=== PATIENT | female | born 1970 ===

== ENCOUNTER 2016-12-29 13:25 | Observation (INO) | payer MEDICAID ==
[2016-12-29 13:25] VITALS: BMI 38.6
--- NOTE | 2016-12-29 14:04 | ED PDOC ---
HPI: General Adult Time Seen by Provider: 12/29/16 13:50 Chief Complaint (Nursing): Chest Pain Chief Complaint (Provider): chest pain History Per: Patient History/Exam Limitations: no limitations Additional Complaint(s): 46yo female w/ Hx GERD comes to the ED complaining of intermittent chest pain, left arm and left chest "heaviness" which began while sitting today. She reports that she has had similar episodes in the past with exertion but this was the first one with rest. States yesterday she was not feeling well, describing feeling feeling winded/dyspnea on exertion. She denies calf swelling. She denies previous cardiac stress testing or cardiology workup. PMD Ginger Ahmadi Past Medical History Reviewed: Historical Data, Nursing Documentation, Vital Signs Vital Signs: Last Vital Signs Temp 98.0 F 12/29/16 13:34 Pulse 80 12/29/16 16:15 Resp 18 12/29/16 16:15 BP 147/99 H 12/29/16 16:15 Pulse Ox 99 12/29/16 18:08 - Medical History PMH: Anemia, Anxiety, Gastritis, GERD, Migraine Denies: Chronic Kidney Disease - Surgical History Surgical History: Appendectomy - Family History Family History: Denies: CAD, Hypertension - Living Arrangements Living Arrangements: With Family - Social History Current smoker - smoking cessation education provided: No Alcohol: None - Home Medications Home Medications: Ambulatory Orders Medication Instructions Recorded No Known Home Med 12/29/16 - Allergies Allergies/Adverse Reactions: Allergies Allergy/AdvReac Type Severity Reaction Status Date / Time No Known Allergies Allergy Verified 12/29/16 13:33 Review of Systems ROS Statement: Except As Marked, All Systems Reviewed And Found Negative Constitutional: Negative for: Fever, Chills Cardiovascular: Positive for: Chest Pain. Negative for: Palpitations, Orthopnea , Paroxysmal Noc. Dyspnea, Light Headedness Respiratory: Positive for: Shortness of Breath, SOB with Exertion. Negative for : Cough Gastrointestinal: Negative for: Nausea, Vomiting, Abdominal Pain, Diarrhea, Constipation Genitourinary Female: Negative for: Dysuria Neurological: Negative for: Weakness, Numbness, Headache Physical Exam - Reviewed Nursing Documentation Reviewed: Yes Vital Signs Reviewed: Yes - Physical Exam Appears: Positive for: Well, Non-toxic, No Acute Distress Head Exam: Positive for: ATRAUMATIC, NORMAL INSPECTION, NORMOCEPHALIC Skin: Positive for: Warm, Dry Eye Exam: Positive for: EOMI, PERRL Cardiovascular/Chest: Positive for: Regular Rate, Rhythm Respiratory: Positive for: Normal Breath Sounds. Negative for: Rales, Rhonchi, Wheezing Gastrointestinal/Abdominal: Positive for: Soft. Negative for: Tenderness, Mass , Distended Back: Positive for: Normal Inspection Extremity: Positive for: Normal ROM. Negative for: Pedal Edema - Laboratory Results Result Diagrams: 12/29/16 14:00 12/29/16 14:00 - ECG O2 Sat by Pulse Oximetry: 99 (RA) Pulse Ox Interpretation: Normal Medical Decision Making Medical Decision Makin EKG shows NSR at 86bpm with sinus arrhythmia, no ST changes impression: chest pain, rule out ACS Plan: CXR Aspirin EKG Labs reassess Patient reporting some nausea, given zofran. Also requesting valium for claustraphobia from CT. 6:14PM CT negative for PE. Trop x 1 negative. Patient does not have risk factors but has been unable to follow-up with cardiology as outpatient and has concerning story. Spoke to family resource coordinator and will transfer to tele observation for r/o acs. Disposition - Clinical Impression Clinical Impression: Chest pain on exertion - Disposition Disposition Time: 18:15 Condition: FAIR Additional Comments - Additional Comments Additional Comments: Scribe Attestation Documented by Balbir Petersen acting as a scribe for Merlene Clemente MD. Provider Attestation: All medical record entries made by the Scribe were at my direction and personally dictated by me. I have reviewed the chart and agree that the record accurately reflects my personal performance of the history, physical exam, medical decision making, and the department course for this patient. I have also personally directed, reviewed, and agree with the discharge instructions and disposition.
[2016-12-29 14:19] LABS: BASO % 0.8 % (0.0-2.0); EOS # 0.1 K/uL (0.0-0.7); EOS % 1.6 % (0.0-4.0); HEMATOCRIT 36.4 % (34.0-47.0); LYMPH # 0.8 K/uL (1.0-4.3); LYMPH % 13.4 % (20.0-40.0); MEAN CELL VOLUME 79.9 fl (81.0-99.0); MEAN CORPUSCULAR HEMOGLOBIN 26.6 pg (27.0-31.0); MEAN CORPUSCULAR HGB CONC 33.2 g/dL (33.0-37.0); MONO # 0.3 K/uL (0.0-0.8); MONO % 5.1 % (0.0-10.0); NEUT # 4.8 K/uL (1.8-7.0); NEUT % 79.1 % (50.0-75.0); RED CELL DISTRIBUTION WIDTH 14.4 % (11.5-14.5); WHITE BLOOD COUNT 6.1 K/uL (4.8-10.8)
[2016-12-29 14:28] LABS: ALB/GLOB RATIO 1.4 (1.0-2.1); ALKALINE PHOSPHATASE 93 U/L (38-126); ALT/SGPT 36 U/L (9-52); AST/SGOT 28 U/L (14-36); BILIRUBIN,TOTAL 0.3 mg/dl (0.2-1.3); BLOOD UREA NITROGEN 16 mg/dl (7-17); CALCIUM 9.7 mg/dL (8.4-10.2); CARBON DIOXIDE 24 mmol/L (22-30); CHLORIDE 104 mmol/L (98-107); GFR AFRICAN-AMERICAN > 60; GLUCOSE,RANDOM 110 mg/dL (65-105); POTASSIUM 4.6 MMOL/L (3.6-5.0); SODIUM 142 mmol/l (132-148); TOTAL PROTEIN 8.6 G/DL (6.3-8.2)
[2016-12-29] MEDS ORDERED: Iodixanol 320 MG/ML 100 ML BOTTLE IV ONE ×2 (14:45→16:46)
[2016-12-29] MEDS ORDERED: Sodium Chloride 0.9% 50 ML IV ONE (14:46)
--- NOTE | 2016-12-29 15:07 | RAD ---
HISTORY: chest pain, shortness of breath COMPARISON: 04/08/2016. TECHNIQUE: Chest PA and lateral FINDINGS: LUNGS: No active pulmonary disease. PLEURA: No significant pleural effusion identified. No pneumothorax apparent. CARDIOVASCULAR: No radiographic findings to suggest acute or significant cardiovascular disease. OSSEOUS STRUCTURES: No significant abnormalities. VISUALIZED UPPER ABDOMEN: Normal. OTHER FINDINGS: None. IMPRESSION: No active disease. No significant interval change compared to the prior examination(s).
[2016-12-29] MEDS ORDERED: diaZEpam 10 mg/2 ml Inj ONE (16:08)
[2016-12-29] MEDS ORDERED: diaZEpam 10 mg/2 ml Inj IVP ONE (16:08)
[2016-12-29] MEDS ORDERED: Sodium Chloride 0.9% 100 ML ONE (16:46)
--- NOTE | 2016-12-29 17:58 | CT ---
PROCEDURE: CT Chest with contrast (Pulmonary Angiogram) HISTORY: chest pain, shortness of breath COMPARISON: None available. TECHNIQUE: Axial computed tomography images were obtained of the chest in the pulmonary arterial phase of enhancement. Coronal and sagittal reformatted images were created and reviewed. This CT exam was performed using one or more of the following dose reduction techniques: Automated exposure control, adjustment of the mA and/or kV according to patient size, and/or use of iterative reconstruction technique. Intravenous contrast dose: 100 cc of Omnipaque 300 Radiation dose: Total exam DLP = 344 mGy-cm. FINDINGS: PULMONARY ARTERIES: Unremarkable. No pulmonary embolism. AORTA: No acute findings. No thoracic aortic aneurysm. LUNGS: Unremarkable. No nodule, mass or pulmonary consolidation. PLEURAL SPACES: Unremarkable. No effusion or pneuomothorax. HEART: Unremarkable. No cardiomegaly. No significant pericardial effusion. LYMPH NODES: No lymphadenopathy. BONES, CHEST WALL: Unremarkable. No fracture or destructive lesion OTHER FINDINGS: Unremarkable. IMPRESSION: Unremarkable CT pulmonary angiogram. No pulmonary embolus.
--- NOTE | 2016-12-29 18:37 | CP.PCM.HP ---
History of Present Illness - History of Present Illness History of Present Illness: CC: intermittent episodes of left sided chest tightness and left arm heaviness x 1 day 46 yo F w/ PMHx of Migraine, Anemia, HLD presented to the ED with intermittent episodes of left sided chest tightness, associated with increasing dyspnea on exertion and rest, as well as left arm heaviness. Onset of symptoms was earlier today while at rest with no alleviating factors. Symptoms aggravated by movement. Of note, patient has had episodes like this before and was admitted for similar symptoms with ''normal blood tests''. Also, patient has had panic attacks before. Currently denies headache, blurry vision, photophobia, neck pain /stiffness, cough, changes in urinary/bowel habits/ no new leg swelling. Able to ambulate without difficulty. No history of cardiology work up as outpatient. Has never had an ECHO or stress test. PMD: Dr. Ahmadi PMHx: Migraine, Anemia, HLD Allergies: NKDA Meds: Pepcid 20 mg BID PRN, Protonix 40 mg Daily Family Hx: Migraine, HTN, DM mother. Multiple relatives with Breast CA. Surgeries: Appendectomy Social Hx: Lives with family. No etoh, tobacco, or drugs. ED course: VS stable EKG shows NSR at 86bpm with sinus arrhythmia, no ST changes chest pain, rule out ACS Plan: CXR Aspirin EKG Labs CT negative for PE Trop x 1 negative. Present on Admission - Present on Admission Any Indicators Present on Admission: No Review of Systems - Review of Systems Review of Systems: see hpi Past Patient History - Infectious Disease Hx of Infectious Diseases: None - Tetanus Immunizations Tetanus Immunization: Unknown - Past Medical History & Family History Past Medical History?: Yes - Past Social History Alcohol: None - CARDIAC Hx Cardiac Disorders: No - PULMONARY Hx Respiratory Disorders: No - NEUROLOGICAL Hx Migraine: Yes - HEENT Other/Comment: blurry vision - RENAL Hx Chronic Kidney Disease: No - ENDOCRINE/METABOLIC Hx Endocrine Disorders: No - HEMATOLOGICAL/ONCOLOGICAL Hx Anemia: Yes - INTEGUMENTARY Hx Dermatological Problems: No - MUSCULOSKELETAL/RHEUMATOLOGICAL Hx Musculoskeletal Disorders: No Hx Falls: No - GASTROINTESTINAL Hx Gastritis: Yes - GENITOURINARY/GYNECOLOGICAL Hx Genitourinary Disorders: No - PSYCHIATRIC Hx Anxiety: Yes - SURGICAL HISTORY Hx Appendectomy: Yes - ANESTHESIA Hx Anesthesia: Yes Hx Anesthesia Reactions: No Meds Allergies/Adverse Reactions: Allergies Allergy/AdvReac Type Severity Reaction Status Date / Time No Known Allergies Allergy Verified 12/29/16 13:33 Physical Exam - Constitutional Appears: Non-toxic, No Acute Distress - Head Exam Head Exam: ATRAUMATIC - Eye Exam Eye Exam: EOMI Pupil Exam: PERRL - ENT Exam ENT Exam: Mucous Membranes Moist - Neck Exam Neck exam: Positive for: Full Rom. Negative for: Tenderness - Respiratory Exam Respiratory Exam: Clear to Auscultation Bilateral. absent: Rales, Rhonchi, Wheezes - Cardiovascular Exam Cardiovascular Exam: +S1, +S2 - GI/Abdominal Exam GI & Abdominal Exam: Normal Bowel Sounds, Soft. absent: Tenderness - Extremities Exam Extremities exam: Positive for: pedal pulses present. Negative for: calf tenderness, pedal edema - Neurological Exam Neurological exam: Alert, Oriented x3 - Psychiatric Exam Psychiatric exam: Anxious, Normal Affect - Skin Skin Exam: Dry, Normal Color, Warm Results - Vital Signs Recent Vital Signs: Last Vital Signs Temp 98.0 F 12/29/16 13:34 Pulse 80 12/29/16 16:15 Resp 18 12/29/16 16:15 BP 147/99 H 12/29/16 16:15 Pulse Ox 99 12/29/16 18:15 - Labs Result Diagrams: 12/29/16 14:00 12/29/16 14:00 Assessment & Plan - Assessment and Plan (Free Text) Plan: 46 y/o F with intermittent episodes of left sided chest tightness and left arm heaviness x 1 day Left sided Chest Tightness ED course: VS stable EKG shows NSR at 86bpm with sinus arrhythmia, no ST changes CXR Aspirin EKG Labs CT negative for PE Trop x 1 negative. Admit to tele phototypesetting equipment monitor troponins Q8H patient has no ECHO on file, ECHO in AM in lieu of worsening dyspnea on exertion as per patient Chronic GERD c/w home meds Pepcid 20 BID PRN Protonix 40 mg PO daily PPx DVT - SCDs, ambulate Diet
[2016-12-29] MEDS ORDERED: Oxycodone/Acetaminophen 5/325 mg Tab PO PRN (22:56)
[2016-12-30 07:12] LABS: HEMATOCRIT 37.1 % (34.0-47.0); MEAN CELL VOLUME 80.8 fl (81.0-99.0); MEAN CORPUSCULAR HEMOGLOBIN 26.5 pg (27.0-31.0); MEAN CORPUSCULAR HGB CONC 32.8 g/dL (33.0-37.0); RED CELL DISTRIBUTION WIDTH 14.7 % (11.5-14.5); WHITE BLOOD COUNT 5.5 K/uL (4.8-10.8)
[2016-12-30 07:40] LABS: ALB/GLOB RATIO 1.4 (1.0-2.1); ALKALINE PHOSPHATASE 84 U/L (38-126); ALT/SGPT 29 U/L (9-52); AST/SGOT 30 U/L (14-36); BILIRUBIN,TOTAL 0.6 mg/dl (0.2-1.3); BLOOD UREA NITROGEN 13 mg/dl (7-17); CALCIUM 9.4 mg/dL (8.4-10.2); CARBON DIOXIDE 22 mmol/L (22-30); CHLORIDE 103 mmol/L (98-107); GFR AFRICAN-AMERICAN > 60; GLUCOSE,RANDOM 110 mg/dL (65-105); POTASSIUM 3.5 MMOL/L (3.6-5.0); SODIUM 143 mmol/l (132-148); TOTAL PROTEIN 8.5 G/DL (6.3-8.2)
[2016-12-30] MEDS ORDERED: Pantoprazole 40 mg EC Tab PO SCH (09:00)
[2016-12-30 15:46] VITALS: BP 121/82; PULSE 75; RESP 16; TEMP 97.8; O2SAT 97
--- NOTE | 2016-12-30 18:54 | CARD ---
APPROVED REPORT EXAM: Two-dimensional and M-mode echocardiogram with Doppler and color Doppler. Other Information Quality : GoodRhythm : NSR INDICATION Dyspnea Chest Pain 2D DIMENSIONS IVSd0.96 (0.7-1.1cm)LVDd4.37 (3.9-5.9cm) LVOT Diameter2.09 (1.8-2.4cm)PWd0.74 (0.7-1.1cm) IVSs1.29 (0.8-1.2cm)LVDs3.02 (2.5-4.0cm) FS (%) 30.9 %PWs1.14 (0.8-1.2cm) LVEF (%)55.0 (>50%) M-Mode DIMENSIONS Left Atrium (MM)4.18 (2.5-4.0cm)IVSd0.65 (0.7-1.1cm) Aortic Root2.85 (2.2-3.7cm)LVDd5.03 (4.0-5.6cm) Aortic Cusp Exc.2.12 (1.5-2.0cm)PWd0.82 (0.7-1.1cm) IVSs1.06 cmFS (%) 32 % LVDs3.44 (2.0-3.8cm)PWs1.26 cm Mitral Valve MV E Excckogq13.7cm/sMV DECEL [id number] A Ynkxnwtu62.1cm/s MV SYA61yiX/A ratio1.3MVA (PHT)5.23cm2 TDI Lateral E' Peak V13.12cm/sMedial E' Peak V9.86cm/sE/Lateral E'5.5 E/Medial E'7.3 Pulmonary Valve PV Peak Evtwvnam54.9cm/s LEFT VENTRICLE The left ventricle is normal size. There is normal left ventricular wall thickness. The left ventricular function is normal. The left ventricular ejection fraction is within the normal range. There is normal LV segmental wall motion. The left ventricular diastolic function is normal. RIGHT VENTRICLE The right ventricle is normal size. There is normal right ventricular wall thickness. The right ventricular systolic function is normal. ATRIA The left atrium size is normal. The right atrium size is normal. AORTIC VALVE The aortic valve is normal in structure and function. No aortic regurgitation is present. There is no aortic valvular stenosis. MITRAL VALVE The mitral valve is normal in structure and function. There is no mitral valve stenosis. There is no mitral valve regurgitation noted. TRICUSPID VALVE The tricuspid valve is normal in structure and function. There is no tricuspid valve regurgitation noted. PULMONIC VALVE The pulmonary valve is normal in structure and function. There is no pulmonic valvular regurgitation. GREAT VESSELS The aortic root is normal in size. The IVC is normal in size and collapses >50% with inspiration. PERICARDIAL EFFUSION The pericardium appears normal. <Conclusion> There is normal left ventricular wall thickness. The left ventricular function is normal. The left ventricular ejection fraction is within the normal range. There is normal LV segmental wall motion. The left ventricular diastolic function is normal.
--- NOTE | 2016-12-30 20:47 | CP.PCM.DIS ---
Provider - Provider Date of Admission: 12/29/16 18:09 Attending physician: Barbara Diamond MD Primary care physician: Ginger Ahmadi MD Time Spent in preparation of Discharge (in minutes): 25 Diagnosis - Discharge Diagnosis (1) Chest pain Status: Acute Comment: ACS was ruled out. negatives troponin x 3. echo normal. likely related w/ anxiety. F/U as outpatient. Hospital Course - Lab Results Lab Results: Most Recent Lab Values WBC 5.5 K/uL (4.8-10.8) 12/30/16 06:10 RBC 4.59 Mil/uL (3.80-5.20) 12/30/16 06:10 Hgb 12.2 g/dL (12.0-16.0) 12/30/16 06:10 Hct 37.1 % (34.0-47.0) 12/30/16 06:10 MCV 80.8 fl (81.0-99.0) L 12/30/16 06:10 MCH 26.5 pg (27.0-31.0) L 12/30/16 06:10 MCHC 32.8 g/dL (33.0-37.0) L 12/30/16 06:10 RDW 14.7 % (11.5-14.5) H 12/30/16 06:10 Plt Count 308 K/uL (130-400) 12/30/16 06:10 MPV 9.0 fl (7.2-11.7) 12/29/16 14:00 Neut % (Auto) 79.1 % (50.0-75.0) H 12/29/16 14:00 Lymph % (Auto) 13.4 % (20.0-40.0) L 12/29/16 14:00 [place] % (Auto) 5.1 % (0.0-10.0) 12/29/16 14:00 Eos % (Auto) 1.6 % (0.0-4.0) 12/29/16 14:00 Baso % (Auto) 0.8 % (0.0-2.0) 12/29/16 14:00 Neut # 4.8 K/uL (1.8-7.0) 12/29/16 14:00 Lymph # 0.8 K/uL (1.0-4.3) L 12/29/16 14:00 [place] # 0.3 K/uL (0.0-0.8) 12/29/16 14:00 Eos # 0.1 K/uL (0.0-0.7) 12/29/16 14:00 Baso # 0.0 K/uL (0.0-0.2) 12/29/16 14:00 D-Dimer, Quantitative 0.51 mg/L FEU (0-0.50) H 12/29/16 14:00 Sodium 143 mmol/l (132-148) 12/30/16 06:10 Potassium 3.5 MMOL/L (3.6-5.0) L 12/30/16 06:10 Chloride 103 mmol/L (98-107) 12/30/16 06:10 Carbon Dioxide 22 mmol/L (22-30) 12/30/16 06:10 Anion Gap 22 (10-20) H 12/30/16 06:10 BUN 13 mg/dl (7-17) 12/30/16 06:10 Creatinine 1.0 mg/dL (0.7-1.2) 12/30/16 06:10 Est GFR ( Amer) > 60 12/30/16 06:10 Est GFR (Non-Af Amer) 60 12/30/16 06:10 Random Glucose 110 mg/dL (65-105) H 12/30/16 06:10 Calcium 9.4 mg/dL (8.4-10.2) 12/30/16 06:10 Total Bilirubin 0.6 mg/dl (0.2-1.3) 12/30/16 06:10 AST 30 U/L (14-36) 12/30/16 06:10 ALT 29 U/L (9-52) 12/30/16 06:10 Alkaline Phosphatase 84 U/L (38-126) 12/30/16 06:10 Total Creatine Kinase 97 U/L (30-135) 12/29/16 14:00 CK-MB (Mass) 0.32 ng/mL (0.0-3.38) 12/29/16 14:00 Troponin I < 0.0120 ng/mL (0.00-0.120) 12/30/16 06:10 Total Protein 8.5 G/DL (6.3-8.2) H 12/30/16 06:10 Albumin 5.0 g/dL (3.5-5.0) 12/30/16 06:10 Globulin 3.5 gm/dL (2.2-3.9) 12/30/16 06:10 Albumin/Globulin Ratio 1.4 (1.0-2.1) 12/30/16 06:10 - Hospital Course Hospital Course: 46 yo F w/ PMHx of Migraine, Anemia, HLD presented to the ED with intermittent episodes of left sided chest tightness, associated with increasing dyspnea on exertion and rest, as well as left arm heaviness, admitted w/ telemetry for observation to r/o ACS. EKG and troponins were negatives, Hospital course uneventful. ECHO done and normal. Patient has Hx of panic attacks in the past. Discharge Exam - Head Exam Head Exam: ATRAUMATIC - Additional Findings Additional findings: Constitutional Appears: Non-toxic, No Acute Distress - Head Exam Head Exam: ATRAUMATIC - Eye Exam Eye Exam: EOMI Pupil Exam: PERRL - ENT Exam ENT Exam: Mucous Membranes Moist - Neck Exam Neck exam: Positive for: Full Rom. Negative for: Tenderness - Respiratory Exam Respiratory Exam: Clear to Auscultation Bilateral. absent: Rales, Rhonchi, Wheezes - Cardiovascular Exam Cardiovascular Exam: +S1, +S2 - GI/Abdominal Exam GI & Abdominal Exam: Normal Bowel Sounds, Soft. absent: Tenderness - Extremities Exam Extremities exam: Positive for: pedal pulses present. Negative for: calf tenderness, pedal edema - Neurological Exam Neurological exam: Alert, Oriented x3 - Psychiatric Exam Psychiatric exam: Anxious, Normal Affect - Skin Skin Exam: Dry, Normal Color, Warm Discharge Plan - Discharge Medications Prescriptions: Pantoprazole Sodium [Protonix] 40 mg PO DAILY 30 Days - Follow Up Plan Condition: FAIR Disposition: HOME/ ROUTINE Instructions: Chest Pain (DC) Additional Instructions: F/U with PMD within one week. appt scheduled w/ Dr. Khoury at [facility] on 01/06/17 at 9:30 am. ER precautions given to pt who verbalized understanding ACS ruled out ( EKG, Troponins x3 negative) . Referrals: Ginger Ahmadi MD [Primary Care Provider] -
== END 2016-12-30 18:15 | disposition home or self-care (01) ==
LOC: H.ER 13:25 → H.ERHOLD 18:09 → H.TEL 21:53 → UNDODISOB 12-30 15:01
PROVIDERS: ADMIT Family Medicine Geriatric Medicine; ATTEND Family Medicine Geriatric Medicine
DX: R07.89 Other chest pain (principal); F41.0 Panic disorder [episodic paroxysmal anxiety]; K21.9 Gastro-esophageal reflux disease without esophagitis; D64.9 Anemia, unspecified; K29.70 Gastritis, unspecified, without bleeding; E78.5 Hyperlipidemia, unspecified; G43.909 Migraine, unspecified, not intractable, without status migrainosus; Z82.49 Family history of ischemic heart disease and other diseases of the circulatory system

== ENCOUNTER 2017-06-08 21:04 | Emergency (ER) | payer MEDICAID ==
[2017-06-08 21:04] VITALS: BMI 38.6
[2017-06-08 21:16] VITALS: BP 159/77; RESP 18; TEMP 98; O2SAT 98
[2017-06-08 21:56] LABS: BASO # 0.1 K/uL (0.0-0.2); BASO % 1.1 % (0.0-2.0); EOS # 0.2 K/uL (0.0-0.7); EOS % 3.3 % (0.0-4.0); HEMATOCRIT 35.4 % (34.0-47.0); LYMPH # 1.4 K/uL (1.0-4.3); LYMPH % 22.2 % (20.0-40.0); MEAN CORPUSCULAR HEMOGLOBIN 26.7 pg (27.0-31.0); MEAN CORPUSCULAR HGB CONC 32.2 g/dL (33.0-37.0); MEAN PLATELET VOLUME 8.9 fl (7.2-11.7); MONO # 0.4 K/uL (0.0-0.8); MONO % 6.5 % (0.0-10.0); NEUT # 4.2 K/uL (1.8-7.0); NEUT % 66.9 % (50.0-75.0); RED CELL DISTRIBUTION WIDTH 14.2 % (11.5-14.5); WHITE BLOOD COUNT 6.3 K/uL (4.8-10.8)
[2017-06-08 22:02] LABS: RBC URINE < 1 /hpf (0-3); URINE BILIRUBIN NEGATIVE (NEGATIVE); URINE BLOOD NEGATIVE (NEGATIVE); URINE COLOR STRAW (YELLOW); URINE GLUCOSE (UA) NEG (Normal); URINE KETONE NEGATIVE (NEGATIVE); URINE LEUKOCYTE ESTERASE NEG Leu/uL (Negative); URINE PROTEIN NEGATIVE (NEGATIVE); URINE UROBILINOGEN 0.2-1.0 mg/dL (0.2-1.0); WBC URINE < 1 /hpf (0-5)
[2017-06-08 22:06] LABS: ALB/GLOB RATIO 1.5 (1.0-2.1); ALKALINE PHOSPHATASE 81 U/L (38-126); ALT/SGPT 31 U/L (9-52); AST/SGOT 24 U/L (14-36); BILIRUBIN,TOTAL 0.3 mg/dl (0.2-1.3); BLOOD UREA NITROGEN 17 mg/dl (7-17); CALCIUM 9.6 mg/dL (8.4-10.2); CARBON DIOXIDE 27 mmol/L (22-30); CHLORIDE 103 mmol/L (98-107); GFR AFRICAN-AMERICAN > 60; GLUCOSE,RANDOM 110 mg/dL (65-105); LIPASE 221 U/L (23-300); POTASSIUM 4.4 MMOL/L (3.6-5.0); SODIUM 141 mmol/l (132-148); TOTAL PROTEIN 7.9 G/DL (6.3-8.2)
--- NOTE | 2017-06-08 23:47 | ED PDOC ---
HPI: Chest Pain Time Seen by Provider: 06/08/17 21:20 Chief Complaint (Nursing): Chest Pain Chief Complaint (Provider): Chest Pain History Per: Patient History/Exam Limitations: no limitations Additional Complaint(s): Dayanara is a 47 y/o female who presents to the ED complaining of right sided chest pain. Patient describes the pain as a pulling sensation radiating to her back and under her breast. She denies shortness of breath, dizziness, or syncope. She complains of mild nausea after eating which has been ongoing for several months; her PMD prescribed her omeprazole for it. All charts reviewed revealing admission for chest pain in the spring with abnormal EKG. PMD: Ginger Ahmadi Past Medical History Reviewed: Historical Data, Nursing Documentation, Vital Signs Vital Signs: Last Vital Signs Temp 98 F 06/08/17 21:13 Pulse 85 06/09/17 00:16 Resp 18 06/08/17 21:13 BP 159/77 H 06/08/17 21:13 Pulse Ox 98 06/09/17 00:16 - Medical History PMH: Anemia, Anxiety, Gastritis, GERD, Migraine Denies: Chronic Kidney Disease Other PMH: high cholesterol - Surgical History Surgical History: Appendectomy - Family History Family History: States: Unknown Family Hx, Diabetes, Hypertension Denies: CAD - Social History Current smoker - smoking cessation education provided: No Ex-Smoker (has not smoked in the last 12 months): No Alcohol: None - Home Medications Home Medications: Ambulatory Orders Medication Instructions Recorded Pantoprazole Sodium [Protonix] 40 mg PO DAILY 30 Days ect 12/30/16 Naproxen [Naprosyn] 500 mg PO BID PRN #14 tablet 06/09/17 - Allergies Allergies/Adverse Reactions: Allergies Allergy/AdvReac Type Severity Reaction Status Date / Time No Known Allergies Allergy Verified 12/29/16 13:33 Review of Systems ROS Statement: Except As Marked, All Systems Reviewed And Found Negative Constitutional: Negative for: Fever Cardiovascular: Positive for: Chest Pain Respiratory: Negative for: Cough, Shortness of Breath Gastrointestinal: Positive for: Nausea Neurological: Negative for: Headache, Dizziness Physical Exam - Reviewed Nursing Documentation Reviewed: Yes Vital Signs Reviewed: Yes - Physical Exam Appears: Positive for: Non-toxic, No Acute Distress Head Exam: Positive for: ATRAUMATIC, NORMAL INSPECTION, NORMOCEPHALIC Skin: Positive for: Normal Color, Warm, Dry. Negative for: Rash Eye Exam: Positive for: Normal appearance, EOMI, PERRL. Negative for: Nystagmus ENT: Positive for: Normal ENT Inspection Neck: Positive for: Normal, Painless ROM, Supple Cardiovascular/Chest: Positive for: Regular Rate, Rhythm. Negative for: Chest Non Tender (right chest wall tenderness), Edema, Murmur Respiratory: Positive for: Normal Breath Sounds. Negative for: Wheezing, Respiratory Distress Gastrointestinal/Abdominal: Positive for: Normal Exam, Bowel Sounds, Soft, Tenderness (mild RUQ tenderness) Back: Positive for: Normal Inspection Extremity: Positive for: Normal ROM. Negative for: Pedal Edema, Deformity Neurologic/Psych: Positive for: Alert, Oriented - Laboratory Results Result Diagrams: 06/08/17 21:45 06/08/17 21:45 - ECG ECG Rhythm: Positive for: Sinus Rhythm. Negative for: ST/T Changes Interpretation Of ECG: compared to December 2016 with no changes Rate: 85 (bpm) O2 Sat by Pulse Oximetry: 98 (RA) Pulse Ox Interpretation: Normal Medical Decision Making Medical Decision Making: Time: 21:17 Initial Impression: Chest Pain Initial Plan: --EKG --CMP --Lipase --Urine --Urine Dipstick --Zofran IV --Urinalysis --Ultrasound Abdomen Limited Time: 22:52 --Troponin I Time: 23:39 --Lab work performed and unremarkable -- negative --HEART score: 1 --Chest XR ordered Time: 00:16 US ABDOMEN LIMITED FINDINGS: Liver: Normal echogenicity. No mass. No intrahepatic bile duct dilatation. Gallbladder: No gallstones. No wall thickening. No pericholecystic fluid. No sonographic Gurrola's sign. Common bile duct: No dilatation. No stones. Pancreas: Unremarkable as visualized. Right kidney: Normal echogenicity. 2.4 x 3.0 x 2.8 cm cyst. No hydronephrosis. IMPRESSION: 1. No acute findings. 2. Non-acute findings are described above. -------- 1210am patient remains w discomfort. Now she states pain radiating into abdomen and RLQ. Denies current nausea, vomiting or diarrhea. CXR unremarkable on my evaluation Will obtain CT abdpelv. Endorse Dr Foss pending CT/ dispo/diagnosis Scribe Attestation: Documented by Stu Gaspar, acting as a scribe for Dr. Paul Wolf III, MD. Provider Scribe Attestation: All medical record entries made by the Scribe were at my direction and personally dictated by me. I have reviewed the chart and agree that the record accurately reflects my personal performance of the history, physical exam, medical decision making, and the department course for this patient. I have also personally directed, reviewed, and agree with the discharge instructions and disposition. Disposition - Clinical Impression Clinical Impression: Abdominal pain, Chest pain - Patient ED Disposition Is Patient to be Admitted: Transfer of Care - Disposition Disposition: Transfer of Care Disposition Time: 00:19 Prescriptions: Naproxen [Naprosyn] 500 mg PO BID PRN #14 tablet PRN Reason: Pain, Moderate (4-7) Forms: [employer] (Persian) Patient Signed Over To: Kirby Foss Handoff Comments: CT result, dispo
[2017-06-08 23:51] VITALS: PULSE 85
--- NOTE | 2017-06-09 00:14 | US ---
EXAM: US Abdomen Limited, Right Upper Quadrant CLINICAL HISTORY: 47 years old, female; Pain; Abdominal pain; Epigastric; Additional info: Ruq pain TECHNIQUE: Real-time ultrasound of the right upper quadrant with image documentation. COMPARISON: US - ABDOMEN COMPLETE 2015-07-02 22:28 FINDINGS: Liver: Normal echogenicity. No mass. No intrahepatic bile duct dilatation. Gallbladder: No gallstones. No wall thickening. No pericholecystic fluid. No sonographic Gurrola's sign. Common bile duct: No dilatation. No stones. Pancreas: Unremarkable as visualized. Right kidney: Normal echogenicity. 2.4 x 3.0 x 2.8 cm cyst. No hydronephrosis. IMPRESSION: 1.No acute findings. 2.Non-acute findings are described above.
[2017-06-09] MEDS ORDERED: Sodium Chloride 0.9% 0 ML IV ONE (00:23)
[2017-06-09] MEDS ORDERED: Iohexol 300 100 ML IJ ONE (00:23)
--- NOTE | 2017-06-09 00:51 | CT ---
EXAM: CT Abdomen and Pelvis Without Intravenous Contrast CLINICAL HISTORY: 47 years old, female; Pain; Abdominal pain; Localized; Right upper quadrant (ruq); Prior surgery; Surgery date: 6+ months; Surgery type: Appendectomy; Additional info: R flank, ruq pain TECHNIQUE: Axial computed tomography images of the abdomen and pelvis without intravenous contrast. All CT scans at this facility use one or more dose reduction techniques, viz.: automated exposure control; ma/kV adjustment per patient size (including targeted exams where dose is matched to indication; i.e. head); or iterative reconstruction technique. Coronal and sagittal reformatted images were created and reviewed. COMPARISON: US - ABDOMEN LIMITED 2017-06-08 23:00 FINDINGS: Lower thorax: Small hiatal hernia. ABDOMEN: Liver: Unremarkable. Gallbladder and bile ducts: No calcified stones. No ductal dilation. Pancreas: Unremarkable. No ductal dilation. Spleen: No splenomegaly. Adrenals: No mass. Kidneys and ureters: Probable RIGHT renal cyst. Punctate calculus within LEFT kidney. No hydronephrosis. Stomach and bowel: No definite mural thickening. No obstruction. Appendix: Appendectomy. PELVIS: Bladder: Unremarkable. No stones. Reproductive: Unremarkable as visualized. ABDOMEN and PELVIS: Intraperitoneal space: No significant fluid collection. No free air. Bones/joints: Degenerative changes of lower lumbar spine. No acute fracture. Soft tissues: Small umbilical hernia containing fat. Vasculature: Few rounded calcifications within pelvis, likely phleboliths. Minimal atherosclerotic disease of aorta. No aneurysm. Lymph nodes: No pathologically enlarged lymph nodes. IMPRESSION: 1. Nonobstructing renal calculus. 2. Incidental/non-acute findings are described above.
--- NOTE | 2017-06-09 00:54 | ED PDOC ---
- Laboratory Results Result Diagrams: 06/08/17 21:45 06/08/17 21:45 - ECG O2 Sat by Pulse Oximetry: 98 (RA) Pulse Ox Interpretation: Normal Medical Decision Making Medical Decision Making: Time: 00:00 --Patient signed out to me by Dr. Paul Wolf III, MD pending imaging results. Time: 00:52 FINDINGS: Lower thorax: Small hiatal hernia. ABDOMEN: Liver: Unremarkable. Gallbladder and bile ducts: No calcified stones. No ductal dilation. Pancreas: Unremarkable. No ductal dilation. Spleen: No splenomegaly. Adrenals: No mass. Kidneys and ureters: Probable RIGHT renal cyst. Punctate calculus within LEFT kidney. No hydronephrosis. Stomach and bowel: No definite mural thickening. No obstruction. Appendix: Appendectomy. PELVIS: Bladder: Unremarkable. No stones. Reproductive: Unremarkable as visualized. ABDOMEN and PELVIS: Intraperitoneal space: No significant fluid collection. No free air. Bones/joints: Degenerative changes of lower lumbar spine. No acute fracture. Soft tissues: Small umbilical hernia containing fat. Vasculature: Few rounded calcifications within pelvis, likely phleboliths. Minimal atherosclerotic disease of aorta. No aneurysm. Lymph nodes: No pathologically enlarged lymph nodes. IMPRESSION: 1. Nonobstructing renal calculus. 2. Incidental/non-acute findings are described above Patient pain free at this time. States she was over-exerting herself physically and may have pulled a muscle. Told patient to followup with Ginger Ahmadi as outpatient in 1-2 days. Will d/c home. Return precautions discussed. Scribe Attestation: Documented by Stu Gaspar, acting as a scribe for Dr. Kirby Foss MD. Provider Scribe Attestation: All medical record entries made by the Scribe were at my direction and personally dictated by me. I have reviewed the chart and agree that the record accurately reflects my personal performance of the history, physical exam, medical decision making, and the department course for this patient. I have also personally directed, reviewed, and agree with the discharge instructions and disposition. Disposition - Clinical Impression Clinical Impression: Abdominal pain, Chest pain - POA Present On Arrival: None - Disposition Referrals: Ginger Ahmadi MD [Family Provider] - Disposition: Routine/Home Disposition Time: 00:52 Additional Instructions: See Dr Ahmadi for further testing if symptoms persist. Return to ER for any worse or new symptoms. Take medications as directed. Prescriptions: Naproxen [Naprosyn] 500 mg PO BID PRN #14 tablet PRN Reason: Pain, Moderate (4-7) Instructions: Chest Pain (ED), Abdominal Pain (ED) Forms: [employer] (Guyanese)
--- NOTE | 2017-06-09 09:59 | RAD ---
HISTORY: COMPARISON: 12/29/2016. TECHNIQUE: Chest PA and lateral FINDINGS: LINES AND TUBES: None. LUNG AND PLEURA: The lungs are well inflated and clear. HEART AND MEDIASTINUM: The heart is not enlarged. The hilar and mediastinal contours are within normal limits. SKELETAL STRUCTURES: The bony structures are within normal limits for the patient's age. VISUALIZED UPPER ABDOMEN: Normal. OTHER FINDINGS: None. IMPRESSION: No active pulmonary disease.
--- NOTE | 2017-06-09 11:54 | CARD ---
APPROVED REPORT EKG Measurement Heart [id number] <Conclusion> Normal sinus rhythm with sinus arrhythmia Normal ECG
== END 2017-06-09 01:20 | disposition home or self-care (01) ==
LOC: H.ER 21:04
DX: R07.89 Other chest pain (principal); R10.13 Epigastric pain; N20.0 Calculus of kidney; Z90.49 Acquired absence of other specified parts of digestive tract
CPT/HCPCS: 71020; 74176; 76705; 80053; 81003; 81025; 83690; 84484; 85025; 93005; 96374; 96375; 99283; J1885; J2405

== ENCOUNTER 2017-06-27 22:42 | Emergency (ER) | payer MEDICAID ==
[2017-06-27 22:42] VITALS: BMI 38.6
[2017-06-27 23:06] VITALS: BP 158/97; PULSE 100; RESP 16; TEMP 97.9; O2SAT 100
--- NOTE | 2017-06-27 23:27 | ED PDOC ---
Lower Extremity Pain/Injury Time Seen by Provider: 06/27/17 23:06 Chief Complaint (Nursing): Lower Extremity Problem/Injury Chief Complaint (Provider): LEFT leg pain History Per: Patient History/Exam Limitations: no limitations Onset/Duration Of Symptoms: Days (1 month but worsened this week) Current Symptoms Are (Timing): Still Present Additional Complaint(s): worse when standing and lying down took tylenol with minimal relief no fall or known injury but reports that she has been "fixing up" at her home recently requiring heavy lifting denies numbness or weakness denies urinary or bowel retention or incontinence denies fever or chills or weight loss Also reports intermittent parasthesias to both upper extremities for last month as well with mild neck pain PMD [facility] [place] Past Medical History Reviewed: Historical Data, Nursing Documentation, Vital Signs Vital Signs: Last Vital Signs Temp 97.9 F 06/27/17 23:04 Pulse 100 H 06/27/17 23:04 Resp 16 06/27/17 23:04 BP 158/97 H 06/27/17 23:04 Pulse Ox 100 06/27/17 23:04 - Medical History PMH: Anemia, Anxiety, Gastritis, GERD, Migraine Denies: Chronic Kidney Disease - Surgical History Surgical History: Appendectomy - Family History Family History: States: Unknown Family Hx, Diabetes, Hypertension Denies: CAD - Social History Current smoker - smoking cessation education provided: No Alcohol: None Drugs: Denies - Home Medications Home Medications: Ambulatory Orders Medication Instructions Recorded Pantoprazole Sodium [Protonix] 40 mg PO DAILY 30 Days ect 12/30/16 Naproxen [Naprosyn] 500 mg PO BID PRN #14 tablet 06/09/17 - Allergies Allergies/Adverse Reactions: Allergies Allergy/AdvReac Type Severity Reaction Status Date / Time No Known Allergies Allergy Verified 12/29/16 13:33 Review of Systems ROS Statement: Except As Marked, All Systems Reviewed And Found Negative (and as per HPI) Constitutional: Negative for: Fever, Chills, Sweats, Weakness Musculoskeletal: Positive for: Neck Pain, Back Pain, Leg Pain Neurological: Negative for: Weakness, Numbness, Headache, Dizziness Physical Exam - Reviewed Nursing Documentation Reviewed: Yes Vital Signs Reviewed: Yes - Physical Exam Appears: Positive for: Non-toxic, In Acute Distress Head Exam: Positive for: ATRAUMATIC, NORMOCEPHALIC Skin: Positive for: Warm, Dry Eye Exam: Positive for: EOMI, PERRL Neck: Positive for: Painless ROM, Supple, Trachea Midline Gastrointestinal/Abdominal: Positive for: Soft. Negative for: Tenderness Back: Positive for: Normal Inspection, Other (tenderness LEFT SI joint). Negative for: Vertebral Tenderness Extremity: Positive for: Normal ROM. Negative for: Pedal Edema, Calf Tenderness , Deformity, Other (bilateral straight leg raise) Lymphatic: Negative for: Adenopathy Neurologic/Psych: Positive for: Alert, Oriented (x3), Other (strength 5/5 in all extremities). Negative for: Motor/Sensory Deficits - ECG O2 Sat by Pulse Oximetry: 100 Disposition - Disposition Forms: [employer] (Chilean)
--- NOTE | 2017-06-28 00:25 | ED PDOC ---
- ECG O2 Sat by Pulse Oximetry: 100 (RA) Pulse Ox Interpretation: Normal Medical Decision Making Medical Decision Making: Time: 00:00 --Patient signed out to me by Dr. Nola Jordan pending CSpine and lumbar X- Ray and reassessment. Time: 1:05 --Xrays show no acute findings --Patient reports mild improvement in symptoms and is stable upon discharge --She will follow up with Dr. Ahmadi in the clinic Clinical Impression: Sciatica and paresthesias Condition: Improved Scribe Attestation: Documented by Stu Gaspar, acting as a scribe for Reed Haas MD Provider Scribe Attestation: All medical record entries made by the Scribe were at my direction and personally dictated by me. I have reviewed the chart and agree that the record accurately reflects my personal performance of the history, physical exam, medical decision making, and the department course for this patient. I have also personally directed, reviewed, and agree with the discharge instructions and disposition. Disposition Counseled Patient/Family Regarding: Studies Performed, Diagnosis, Need For Followup, Rx Given - Clinical Impression Clinical Impression: Sciatica, Paresthesia - POA Present On Arrival: None - Disposition Referrals: [facility] [Outside] Disposition: Routine/Home Disposition Time: 01:05 Condition: STABLE Prescriptions: Cyclobenzaprine [Cyclobenzaprine HCl] 10 mg PO TID PRN #15 tab PRN Reason: back/neck pain Instructions: Sciatica (ED), Paresthesia (ED) Forms: [employer] (Finnish)
--- NOTE | 2017-06-28 11:02 | RAD ---
PROCEDURE: Radiographs of the Lumbar Spine. HISTORY: LEFT lumbar pain COMPARISON: Comparison made with CT scan of the abdomen pelvis dated 06/09/2017 which image the lumbar spine in 3 planes. FINDINGS: BONES: No acute compression fractures no retropulsed fragments. Vertebral bodies exhibit normal stature of. Vertebral bodies and facets normally aligned. DISC SPACES: There is mild disc space narrowing seen at the L5-S1 level. . Previously noted small amount of vacuum disc phenomena within this disc space not well delineated. The facet joints are hypertrophic at the L4-L5 and to a lesser degree L5-S1 and L3-L4 levels. OTHER FINDINGS: None. IMPRESSION: No acute fractures. Mild degenerative spondylosis most notably affecting the L5-S1 and L4-L5 levels as detailed above. Please refer to CT scan abdomen pelvis 06/09/2017 for additional details.
--- NOTE | 2017-06-28 11:33 | RAD ---
PROCEDURE: Three views of the cervical spine performed. Note that the examination is limited due to obscuration of the odontoid by overlying occiput in the open-mouth projection. HISTORY: Pain. COMPARISON: None. FINDINGS: BONES: No acute compression fractures nor retropulsed fragments. Vertebral bodies exhibit normal stature. DISC SPACES: Minor multilevel disc space narrowing with small marginal anterior osteophyte formation. . SOFT TISSUES: Normal. No prevertebral soft tissue swelling. OTHER FINDINGS: None. IMPRESSION: Limited study as above. No evidence of acute compression fractures nor retropulsed fragments within limitation of the exam. Minor multilevel degenerative spondylosis
== END 2017-06-28 01:19 | disposition home or self-care (01) ==
LOC: H.ER 22:42
DX: M54.32 Sciatica, left side (principal); R20.2 Paresthesia of skin; F41.9 Anxiety disorder, unspecified; K21.9 Gastro-esophageal reflux disease without esophagitis
CPT/HCPCS: 72040; 72100; 96372; 99282; J1885

== ENCOUNTER 2017-11-09 22:06 | Emergency (ER) | payer MEDICAID ==
[2017-11-09 22:49] VITALS: BMI 34.3
[2017-11-09 22:52] VITALS: BP 149/89; PULSE 78; RESP 16; TEMP 98.6; O2SAT 100
== END 2017-11-10 01:30 | disposition left against medical advice (07) ==
LOC: H.ER 22:06
DX: Z02.89 Encounter for other administrative examinations (principal)

== ENCOUNTER 2017-11-22 03:14 | Emergency (ER) | payer MEDICAID ==
[2017-11-22 03:15] VITALS: BMI 34.3
[2017-11-22 03:37] VITALS: BP 156/84; PULSE 94; RESP 18; TEMP 97.8; O2SAT 100
[2017-11-22] MEDS ORDERED: Sodium Chloride 0.9% 1,000 ML IV STA (03:46)
--- NOTE | 2017-11-22 03:55 | ED PDOC ---
HPI: Abdomen Time Seen by Provider: 11/22/17 03:35 Chief Complaint (Nursing): Abdominal Pain Chief Complaint (Provider): Sore Throat, Abdominal Pain History Per: Patient History/Exam Limitations: no limitations Onset/Duration Of Symptoms: Days (x 1 month) Additional Complaint(s): Dayanara is a 47 y/o female with a history of GERD who presents to the ED complaining of sore throat and abdominal pain for the past month. She has been taking omeprazole this past month and is awaiting an evaluation with a GI doctor. She states her sore throat and epigastric pain have become worse today prompting her visit to the ER. She also reports nausea but denies vomiting, and says she has gained about 20 pounds despite not being able to eat. PMD: Stefania Ahmadi Past Medical History Reviewed: Historical Data, Nursing Documentation, Vital Signs Vital Signs: Last Vital Signs Temp 97.8 F 11/22/17 03:35 Pulse 94 H 11/22/17 03:35 Resp 18 11/22/17 03:35 BP 156/84 H 11/22/17 03:35 Pulse Ox 100 11/22/17 03:58 - Medical History PMH: Anemia, Anxiety, Gastritis, GERD, Migraine Denies: Chronic Kidney Disease - Surgical History Surgical History: Appendectomy - Family History Family History: States: Unknown Family Hx, Diabetes, Hypertension Denies: CAD - Home Medications Home Medications: Ambulatory Orders Medication Instructions Recorded Pantoprazole Sodium [Protonix] 40 mg PO DAILY 30 Days ect 12/30/16 Naproxen [Naprosyn] 500 mg PO BID PRN #14 tablet 06/09/17 Cyclobenzaprine [Cyclobenzaprine 10 mg PO TID PRN #15 tab 06/28/17 HCl] Esomeprazole Magnesium [Nexium] 40 mg PO DAILY #28 ecc 11/22/17 - Allergies Allergies/Adverse Reactions: Allergies Allergy/AdvReac Type Severity Reaction Status Date / Time No Known Allergies Allergy Verified 11/22/17 03:34 Review of Systems ROS Statement: Except As Marked, All Systems Reviewed And Found Negative Constitutional: Positive for: Other (weight gain, loss of appetite) Gastrointestinal: Positive for: Nausea, Abdominal Pain. Negative for: Vomiting Physical Exam - Reviewed Nursing Documentation Reviewed: Yes Vital Signs Reviewed: Yes - Physical Exam Appears: Positive for: Well (obese), Non-toxic, No Acute Distress Cardiovascular/Chest: Positive for: Regular Rate, Rhythm. Negative for: Murmur Respiratory: Positive for: Normal Breath Sounds. Negative for: Respiratory Distress Gastrointestinal/Abdominal: Positive for: Soft, Tenderness (mild epigastric) Neurologic/Psych: Positive for: Alert, Oriented. Negative for: Motor/Sensory Deficits - Laboratory Results Result Diagrams: 11/22/17 04:19 11/22/17 04:19 - ECG O2 Sat by Pulse Oximetry: 100 (RA) Pulse Ox Interpretation: Normal Medical Decision Making Medical Decision Making: Time: 3:45 Initial Impression: 47 y/o female with epigastric pain and sore throat in setting of known GERD Initial Plan: --EKG --CMP --Free t4 --Free t3 --TSH --Urine --Urine Dip --CBC --Prozac Time: 5:50 --Labs reviewed no clinically significant abnormalities. --Patient reports some improvement in symptoms --Patient advised to discontinue omeprazole in favor of Nexium and follow up with GI specialist and PMD Scribe Attestation: Documented by Stu Gaspar, acting as a scribe for Reed Haas MD Provider Scribe Attestation: All medical record entries made by the Scribe were at my direction and personally dictated by me. I have reviewed the chart and agree that the record accurately reflects my personal performance of the history, physical exam, medical decision making, and the department course for this patient. I have also personally directed, reviewed, and agree with the discharge instructions and disposition. Disposition - Clinical Impression Clinical Impression: GERD (gastroesophageal reflux disease) - Patient ED Disposition Is Patient to be Admitted: No Counseled Patient/Family Regarding: Studies Performed, Diagnosis, Need For Followup, Rx Given - Disposition Disposition: Routine/Home Disposition Time: 05:50 Condition: STABLE Prescriptions: Esomeprazole Magnesium [Nexium] 40 mg PO DAILY #28 ecc Instructions: Acid Reflux (Gastroesophageal Reflux Disease) in Adults Forms: [employer] (P[place]an)
[2017-11-22 04:44] LABS: ALB/GLOB RATIO 1.2 (1.0-2.1); ALBUMIN 4.6 g/dL (3.5-5.0); ALT/SGPT 41 U/L (9-52); AST/SGOT 30 U/L (14-36); BLOOD UREA NITROGEN 12 mg/dl (7-17); CALCIUM 9.8 mg/dL (8.4-10.2); GFR AFRICAN-AMERICAN > 60; GFR NON-AFRICAN AMERICAN > 60; LIPASE 107 U/L (23-300)
[2017-11-22 05:00] LABS: T4 9.41 ug/dl (5.5-11.0)
[2017-11-22 05:05] LABS: BASO % 0.5 % (0.0-2.0); EOS % 0.7 % (0.0-4.0); HEMOGLOBIN 12.7 g/dL (12.0-16.0); LYMPH # 0.7 K/uL (1.0-4.3); LYMPH % 10.6 % (20.0-40.0); MEAN CELL VOLUME 83.9 fl (81.0-99.0); MEAN CORPUSCULAR HEMOGLOBIN 28.5 pg (27.0-31.0); MEAN CORPUSCULAR HGB CONC 33.9 g/dL (33.0-37.0); MEAN PLATELET VOLUME 8.9 fl (7.2-11.7); MONO # 0.3 K/uL (0.0-0.8); MONO % 3.9 % (0.0-10.0); NEUT # 5.7 K/uL (1.8-7.0); NEUT % 84.3 % (50.0-75.0); NRBC % 0.1 % (0.0-0.0); RBC 4.46 Mil/uL (3.80-5.20); RED CELL DISTRIBUTION WIDTH 13.8 % (11.5-14.5); WHITE BLOOD COUNT 6.7 K/uL (4.8-10.8)
[2017-11-22 05:13] LABS: T3 1.03 nmol/L (1.49-2.60)
--- NOTE | 2017-11-23 13:32 | CARD ---
APPROVED REPORT EKG Measurement Heart [id number] <Conclusion> Normal sinus rhythm with sinus arrhythmia Normal ECG
== END 2017-11-22 06:04 | disposition home or self-care (01) ==
LOC: H.ER 03:14
DX: K21.9 Gastro-esophageal reflux disease without esophagitis (principal)
CPT/HCPCS: 80053; 83690; 84439; 84443; 84481; 85025; 93005; 96360; 99283; C9113; J7040

== ENCOUNTER 2017-11-25 02:28 | Emergency (ER) | payer MEDICAID ==
[2017-11-25 02:29] VITALS: BMI 34.3
[2017-11-25 02:49] VITALS: TEMP 98.7
[2017-11-25] MEDS ORDERED: DiphenhydrAMINE 50 mg/ml Inj IVP STA (03:04)
[2017-11-25] MEDS ORDERED: DiphenhydrAMINE 50 mg/ml Inj ONE (03:15)
[2017-11-25 03:42] LABS: HEMOGLOBIN 12.3 g/dL (12.0-16.0); MEAN CELL VOLUME 84.1 fl (81.0-99.0); MEAN CORPUSCULAR HEMOGLOBIN 28.2 pg (27.0-31.0); MEAN CORPUSCULAR HGB CONC 33.5 g/dL (33.0-37.0); RBC 4.38 Mil/uL (3.80-5.20); RED CELL DISTRIBUTION WIDTH 13.7 % (11.5-14.5); WHITE BLOOD COUNT 6.7 K/uL (4.8-10.8)
--- NOTE | 2017-11-25 03:50 | ED PDOC ---
HPI: Chest Pain Time Seen by Provider: 11/25/17 02:52 Chief Complaint (Nursing): Chest Pain Chief Complaint (Provider): Chest Pain History Per: Patient History/Exam Limitations: no limitations Onset/Duration Of Symptoms: Days (x1), Persistent Current Symptoms Are (Timing): Still Present Additional Complaint(s): 47 year old female with medical history of gastritis, presents to the emergency department with a complaint of right-sided chest and shoulder pain radiating to her right arm ongoing for 1 day. She also reports a diffuse rash on her chest and arms. Patient denies any new exposures (food/meds/scent, etc), sore throat, throat swelling, bodily injuries, heavy lifting, fall or shortness of breath. PMD: Ginger Ahmadi MD Past Medical History Reviewed: Historical Data, Nursing Documentation, Vital Signs Vital Signs: Last Vital Signs Temp 98.7 F 11/25/17 02:47 Pulse 93 H 11/25/17 02:47 Resp 20 11/25/17 02:47 BP 180/104 H 11/25/17 02:47 Pulse Ox 98 11/25/17 05:05 - Medical History PMH: Anemia, Anxiety, Gastritis, GERD, Migraine Denies: Chronic Kidney Disease - Surgical History Surgical History: Appendectomy - Family History Family History: States: Unknown Family Hx, Diabetes, Hypertension Denies: CAD - Home Medications Home Medications: Ambulatory Orders Medication Instructions Recorded Pantoprazole Sodium [Protonix] 40 mg PO DAILY 30 Days ect 12/30/16 Naproxen [Naprosyn] 500 mg PO BID PRN #14 tablet 06/09/17 Cyclobenzaprine [Cyclobenzaprine 10 mg PO TID PRN #15 tab 06/28/17 HCl] Esomeprazole Magnesium [Nexium] 40 mg PO DAILY #28 ecc 11/22/17 Naproxen [Naprosyn] 500 mg PO BID #30 tablet 11/25/17 - Allergies Allergies/Adverse Reactions: Allergies Allergy/AdvReac Type Severity Reaction Status Date / Time No Known Allergies Allergy Verified 11/25/17 02:49 Review of Systems ROS Statement: Except As Marked, All Systems Reviewed And Found Negative ENT: Negative for: Throat Pain, Throat Swelling Cardiovascular: Positive for: Chest Pain (right-sided). Negative for: Other ( injury) Respiratory: Negative for: Shortness of Breath Musculoskeletal: Positive for: Shoulder Pain (right-sided), Arm Pain (right- sided) Skin: Positive for: Rash (arms and chest) Physical Exam - Reviewed Nursing Documentation Reviewed: Yes Vital Signs Reviewed: Yes - Physical Exam Appears: Positive for: Non-toxic, No Acute Distress Head Exam: Positive for: ATRAUMATIC, NORMAL INSPECTION, NORMOCEPHALIC Skin: Positive for: Rash (maculopapular blanching on chest and upper extremities ). Negative for: Normal Color Eye Exam: Positive for: Normal appearance ENT: Positive for: Normal ENT Inspection. Negative for: Pharyngeal Erythema, Tonsillar Swelling Neck: Positive for: Normal, Supple Cardiovascular/Chest: Positive for: Regular Rate, Rhythm, Chest Non Tender Respiratory: Positive for: Normal Breath Sounds. Negative for: Wheezing, Respiratory Distress Gastrointestinal/Abdominal: Positive for: Normal Exam, Soft Extremity: Positive for: Normal ROM (upper/lower) Neurologic/Psych: Positive for: Alert, Oriented - Laboratory Results Result Diagrams: 11/25/17 03:30 11/25/17 03:30 - ECG O2 Sat by Pulse Oximetry: 98 (RA) Pulse Ox Interpretation: Normal Medical Decision Making Medical Decision Making: Time: 0304 Initial Impression: A/P: Hx of gastritis, presenting multiple complaints. Right-sided chest pain, most likely, related to musculoskeletal. Rash is possible allergic dermatitis. --Bentyl 50mg IVP and Toradol 30mg IVP ordered for treatment. --BMP and CBC additionally ordered. Time: 0501 --Upon provider re-evaluation, patient is feeling better, rash is gone, medically stable and requires no further treatment in the ED at this time. Patient will be discharged home with Rx for Naprosyn 500mg. Counseling was provided and all questions were answered regarding diagnosis and need for follow up with PMD. There is agreement to discharge plan. Return if symptoms persist or worsen. Clinical Impression: Dermatitis; Chest wall pain Scribe Attestation: Documented by Josie Milton, acting as a scribe for Kirby Foss MD. Provider Scribe Attestation: All medical record entries made by the Scribe were at my direction and personally dictated by me. I have reviewed the chart and agree that the record accurately reflects my personal performance of the history, physical exam, medical decision making, and the department course for this patient. I have also personally directed, reviewed, and agree with the discharge instructions and disposition. Disposition - Clinical Impression Clinical Impression: Chest wall pain, Dermatitis - Patient ED Disposition Is Patient to be Admitted: No Counseled Patient/Family Regarding: Studies Performed, Diagnosis, Need For Followup, Rx Given - Disposition Referrals: Ginger Ahmadi MD [Primary Care Provider] - Disposition: Routine/Home Disposition Time: 05:01 Condition: IMPROVED Prescriptions: Naproxen [Naprosyn] 500 mg PO BID #30 tablet Instructions: Dermatitis, Chest Pain That Is Not Caused by the Heart (DC) Forms: [employer] (Tamazight)
[2017-11-25 04:08] LABS: BLOOD UREA NITROGEN 15 mg/dl (7-17); CALCIUM 9.5 mg/dL (8.4-10.2); GFR AFRICAN-AMERICAN > 60; GFR NON-AFRICAN AMERICAN > 60
[2017-11-25 05:16] VITALS: BP 128/75; PULSE 73; RESP 15; O2SAT 100
== END 2017-11-25 05:16 | disposition home or self-care (01) ==
LOC: H.ER 02:28
DX: R07.89 Other chest pain (principal); L23.9 Allergic contact dermatitis, unspecified cause; F41.9 Anxiety disorder, unspecified; K21.9 Gastro-esophageal reflux disease without esophagitis
CPT/HCPCS: 80048; 81025; 85027; 96374; 96375; 99283; J1200; J1885

== ENCOUNTER 2018-06-26 15:19 | Emergency (ER) | payer MEDICAID ==
[2018-06-26 15:19] VITALS: BMI 34.3
--- NOTE | 2018-06-26 16:11 | ED PDOC ---
HPI: General Adult Time Seen by Provider: 06/26/18 15:38 Chief Complaint (Nursing): Palpitations Chief Complaint (Provider): Palpitations History Per: Patient History/Exam Limitations: no limitations Onset/Duration Of Symptoms: Hrs (x1) Additional Complaint(s): 48 year old female with a history of gastritis presents to the ED with palpitations. Around 3 pm, patient went to the bathroom after finishing class at [employer] [employer], when she developed palpations that even extended up to her neck. She has associated lightheadedness and tingling. Patient reported this to [facility], who called 911. She denies chest pain or stimulant use including caffeine or drug use. Patient has not consumed any alcohol and has had no increase in stress recently. She reports for the last 3 days, she had tingling in her fingers and feet, but she has been feeling well otherwise. PMD: Clinic Past Medical History Reviewed: Historical Data, Nursing Documentation, Vital Signs Vital Signs: Last Vital Signs Temp 97.7 F 06/26/18 15:25 Pulse 110 H 06/26/18 15:40 Resp 20 06/26/18 15:25 BP 165/95 H 06/26/18 15:25 Pulse Ox 100 06/26/18 15:25 - Medical History PMH: Anemia, Anxiety, Gastritis, GERD, Migraine Denies: Chronic Kidney Disease - Surgical History Surgical History: Appendectomy - Family History Family History: States: Unknown Family Hx, Diabetes, Hypertension, Other Denies: CAD Other Family History: Cancer - Social History Current smoker - smoking cessation education provided: No Ex-Smoker (has not smoked in the last 12 months): No Alcohol: None Drugs: Denies - Home Medications Home Medications: Ambulatory Orders Medication Instructions Recorded Pantoprazole Sodium [Protonix] 40 mg PO DAILY 30 Days ect 12/30/16 Naproxen [Naprosyn] 500 mg PO BID PRN #14 tablet 06/09/17 Cyclobenzaprine [Cyclobenzaprine 10 mg PO TID PRN #15 tab 06/28/17 HCl] Esomeprazole Magnesium [Nexium] 40 mg PO DAILY #28 ecc 11/22/17 Naproxen [Naprosyn] 500 mg PO BID #30 tablet 11/25/17 Cyclobenzaprine [Cyclobenzaprine 10 mg PO BID #15 tab 04/22/18 HCl] Lidocaine 1 each TP DAILY #10 adh..patch 04/22/18 Naproxen [Naprosyn] 500 mg PO BID #30 tablet 04/22/18 - Allergies Allergies/Adverse Reactions: Allergies Allergy/AdvReac Type Severity Reaction Status Date / Time No Known Allergies Allergy Verified 06/26/18 15:25 Review of Systems ROS Statement: Except As Marked, All Systems Reviewed And Found Negative Cardiovascular: Positive for: Palpitations. Negative for: Chest Pain Neurological: Positive for: Other (lightheadedness and tingling) Physical Exam - Reviewed Nursing Documentation Reviewed: Yes Vital Signs Reviewed: Yes - Physical Exam Appears: Positive for: Non-toxic, No Acute Distress Head Exam: Positive for: ATRAUMATIC, NORMOCEPHALIC Skin: Positive for: Warm, Dry Eye Exam: Positive for: EOMI, PERRL ENT: Negative for: Pharyngeal Erythema, Tonsillar Exudate Neck: Positive for: Painless ROM, Supple Cardiovascular/Chest: Positive for: Tachycardia, Other (regular rhythm) Respiratory: Positive for: Normal Breath Sounds. Negative for: Wheezing Gastrointestinal/Abdominal: Positive for: Soft. Negative for: Tenderness Back: Positive for: Normal Inspection. Negative for: Decreased ROM Extremity: Positive for: Normal ROM. 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 Negative for: Motor/Sensory Deficits - Laboratory Results Result Diagrams: 06/26/18 16:15 06/26/18 16:15 - ECG O2 Sat by Pulse Oximetry: 100 (RA) Pulse Ox Interpretation: Normal Medical Decision Making Medical Decision Making: Time: 1553 Initial Impression: Tachycardia and hypertension Differential diagnoses include but are not limited to: Thyroid dysfunction, electrolyte abnormalities, anemia, anxiety and pheochromocytoma Initial Plan: --EKG --Type and screen --BNP --CMP --Drug screen --Free T4 --Magnesium --Phosphorous --T3 --Thyroid stimulating hormone --Troponin --U dip --U preg --CBC with differentials --D Dimer --PTT --PT --CXR Time: 1733 CXR: FINDINGS: LUNGS: No active pulmonary disease. PLEURA: No significant pleural effusion identified. No pneumothorax apparent. CARDIOVASCULAR: No aortic atherosclerotic calcification present. Normal cardiac size. No pulmonary vascular congestion. OSSEOUS STRUCTURES: No significant abnormalities. VISUALIZED UPPER ABDOMEN: Normal. OTHER FINDINGS: None. IMPRESSION: No active disease. Time: 1742 --Heartrate and BP improved with minimal intervention (IV hydration). labs are unremarkable. DW pt findings and need for followup at clinic for further evaluation. Scribe Attestation: Documented by Melissa Worrell, acting as a scribe for Nola Jordan MD Provider Scribe Attestation: All medical record entries made by the Scribe were at my direction and personally dictated by me. I have reviewed the chart and agree that the record accurately reflects my personal performance of the history, physical exam, medical decision making, and the department course for this patient. I have also personally directed, reviewed, and agree with the discharge instructions and disposition. Disposition - Clinical Impression Clinical Impression: Tachycardia Counseled Patient/Family Regarding: Studies Performed, Diagnosis, Need For Followup - Disposition Referrals: [facility] [Outside] (FOLLOW UP AT CLINIC NEXT WEEK FOR FURTHER CARDIOLOGY REFERRAL AND FURTHER EVALUATION) Disposition: Routine/Home Disposition Time: 18:14 Condition: IMPROVED Additional Instructions: DRINK PLENTY OF HYDRATING FLUIDS AND REST AVOID CAFFEINE, STIMULANTS, COLD/COUGH MEDICATIONS AND ALCOHOL UNTIL EVALUATED BY CLINIC. Instructions: Sinus Tachycardia (DC)
[2018-06-26 16:27] LABS: BASO # 0.1 K/uL (0.0-0.2); BASO % 0.7 % (0.0-2.0); EOS # 0.1 K/uL (0.0-0.7); HEMOGLOBIN 11.9 g/dL (12.0-16.0); LYMPH # 0.9 K/uL (1.0-4.3); LYMPH % 11.3 % (20.0-40.0); MEAN CELL VOLUME 78.8 fl (81.0-99.0); MEAN CORPUSCULAR HEMOGLOBIN 25.6 pg (27.0-31.0); MEAN CORPUSCULAR HGB CONC 32.5 g/dL (33.0-37.0); MEAN PLATELET VOLUME 8.8 fl (7.2-11.7); MONO # 0.4 K/uL (0.0-0.8); NEUT # 6.3 K/uL (1.8-7.0); RBC 4.64 Mil/uL (3.80-5.20); RED CELL DISTRIBUTION WIDTH 14.4 % (11.5-14.5); WHITE BLOOD COUNT 7.6 K/uL (4.8-10.8)
[2018-06-26 16:37] LABS: PROTHROMBIN TIME 11.6 Seconds (9.8-13.1)
[2018-06-26 16:40] LABS: PARTIAL THROMBOPLASTIN TIME 31.2 Seconds (25.6-37.1)
[2018-06-26 16:48] LABS: ALB/GLOB RATIO 1.3 (1.0-2.1); ALBUMIN 4.8 g/dL (3.5-5.0); ALT/SGPT 34 U/L (9-52); AST/SGOT 29 U/L (14-36); BLOOD UREA NITROGEN 13 mg/dl (7-17); CALCIUM 9.8 mg/dL (8.4-10.2); GFR NON-AFRICAN AMERICAN > 60
[2018-06-26 17:01] LABS: B-TYPE NATRIURETIC PEPTIDE 143 pg/ml (0-450)
[2018-06-26 17:19] LABS: T3 1.03 nmol/L (1.49-2.60)
[2018-06-26 17:33] LABS: D DIMER < 200 ng/mlDDU (0-230)
--- NOTE | 2018-06-26 17:36 | RAD ---
Date of service: 06/26/2018 HISTORY: palpitations COMPARISON: 04/22/2018 TECHNIQUE: Chest PA and lateral FINDINGS: LUNGS: No active pulmonary disease. PLEURA: No significant pleural effusion identified. No pneumothorax apparent. CARDIOVASCULAR: No aortic atherosclerotic calcification present. Normal cardiac size. No pulmonary vascular congestion. OSSEOUS STRUCTURES: No significant abnormalities. VISUALIZED UPPER ABDOMEN: Normal. OTHER FINDINGS: None. IMPRESSION: No active disease.
[2018-06-26 18:33] VITALS: BP 131/74; PULSE 87; RESP 18; TEMP 98.2; O2SAT 97
--- NOTE | 2018-06-28 05:55 | CARD ---
APPROVED REPORT Date of service: 06/26/2018 EKG Measurement Heart [id number] <Conclusion> Sinus tachycardia Otherwise normal ECG
== END 2018-06-26 18:31 | disposition home or self-care (01) ==
LOC: H.ER 15:19
DX: R00.0 Tachycardia, unspecified (principal); F41.9 Anxiety disorder, unspecified; I10 Essential (primary) hypertension; K21.9 Gastro-esophageal reflux disease without esophagitis

== ENCOUNTER 2018-07-14 19:36 | Emergency (ER) | payer MEDICAID ==
[2018-07-14 19:36] VITALS: BMI 34.3
[2018-07-14 21:34] LABS: BASO % 0.5 % (0.0-2.0); EOS # 0.1 K/uL (0.0-0.7); EOS % 1.4 % (0.0-4.0); HEMOGLOBIN 11.3 g/dL (12.0-16.0); LYMPH # 1.3 K/uL (1.0-4.3); LYMPH % 22.5 % (20.0-40.0); MEAN CELL VOLUME 81.1 fl (81.0-99.0); MEAN CORPUSCULAR HEMOGLOBIN 24.8 pg (27.0-31.0); MEAN CORPUSCULAR HGB CONC 30.5 g/dL (33.0-37.0); MEAN PLATELET VOLUME 8.8 fl (7.2-11.7); MONO # 0.4 K/uL (0.0-0.8); MONO % 6.6 % (0.0-10.0); NEUT # 4.1 K/uL (1.8-7.0); NRBC % 0.1 % (0.0-0.0); RBC 4.57 Mil/uL (3.80-5.20); RED CELL DISTRIBUTION WIDTH 14.4 % (11.5-14.5); WHITE BLOOD COUNT 5.9 K/uL (4.8-10.8)
--- NOTE | 2018-07-14 22:00 | ED PDOC ---
HPI: Hypertension/Hypotension Time Seen by Provider: 07/14/18 20:45 Chief Complaint (Nursing): High Blood Pressure Chief Complaint (Provider): High Blood Pressure History Per: Patient History/Exam Limitations: no limitations Onset/Duration Of Symptoms: Days Current Symptoms Are (Timing): Still Present Additional Complaint(s): 48 y/o female with a PMHx of borderline HTN presents to the ED for evaluation of elevated blood pressure. Patient was seen and evaluated here a couple of weeks ago for palpitations and discharged home. Patient followed up with Dr. Ahmadi who later diagnosed her with anxiety and prescribed Xanax. Patient has not taken any anxiety medications since visit with Dr. Ahmadi. 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 On subsequent reading, blood pressure came done. While at a pharmacy, patient reports of having her blood pressure read at 159/89 and was advised to come to the ER for further evaluation. At this time, patient denies chest pain, shortness of breath, nausea and vomiting. Of note, patient admits to feeling increased stress levels recently. PMD: Jyoti Ahmadi Past Medical History Reviewed: Historical Data, Nursing Documentation, Vital Signs Vital Signs: Last Vital Signs Temp 98.5 F 07/14/18 20:35 Pulse 85 07/14/18 20:35 Resp 18 07/14/18 20:35 BP 179/109 H 07/14/18 20:35 Pulse Ox 99 07/14/18 20:35 - Medical History PMH: Anemia, Anxiety, Gastritis, GERD, HTN (borderline), Migraine Denies: Chronic Kidney Disease - Surgical History Surgical History: Appendectomy - Family History Family History: States: Unknown Family Hx, Diabetes, Hypertension Denies: CAD - Home Medications Home Medications: Ambulatory Orders Medication Instructions Recorded Pantoprazole Sodium [Protonix] 40 mg PO DAILY 30 Days ect 12/30/16 Naproxen [Naprosyn] 500 mg PO BID PRN #14 tablet 06/09/17 Cyclobenzaprine [Cyclobenzaprine 10 mg PO TID PRN #15 tab 06/28/17 HCl] Esomeprazole Magnesium [Nexium] 40 mg PO DAILY #28 ecc 11/22/17 Naproxen [Naprosyn] 500 mg PO BID #30 tablet 11/25/17 Cyclobenzaprine [Cyclobenzaprine 10 mg PO BID #15 tab 04/22/18 HCl] Lidocaine 1 each TP DAILY #10 adh..patch 04/22/18 Naproxen [Naprosyn] 500 mg PO BID #30 tablet 04/22/18 - Allergies Allergies/Adverse Reactions: Allergies Allergy/AdvReac Type Severity Reaction Status Date / Time No Known Allergies Allergy Verified 06/26/18 15:25 Review of Systems ROS Statement: Except As Marked, All Systems Reviewed And Found Negative Constitutional: Positive for: Other (elevated blood pressure) Cardiovascular: Negative for: Chest Pain Respiratory: Negative for: Shortness of Breath Gastrointestinal: Negative for: Nausea, Vomiting Physical Exam - Reviewed Nursing Documentation Reviewed: Yes Vital Signs Reviewed: Yes - Physical Exam Appears: Positive for: No Acute Distress (but anxious appearing) Head Exam: Positive for: ATRAUMATIC, NORMOCEPHALIC Skin: Positive for: Normal Color, Warm, Dry Eye Exam: Positive for: Normal appearance, EOMI, PERRL Neck: Positive for: Normal, Painless ROM Cardiovascular/Chest: Positive for: Regular Rate, Rhythm. Negative for: Murmur Respiratory: Positive for: Normal Breath Sounds. Negative for: Respiratory Distress Gastrointestinal/Abdominal: Positive for: Normal Exam, Soft. Negative for: Tenderness Back: Positive for: Normal Inspection. Negative for: L CVA Tenderness, R CVA Tenderness, Vertebral Tenderness Extremity: Positive for: Normal ROM. Negative for: Pedal Edema, Deformity Neurologic/Psych: Positive for: Alert, Oriented. Negative for: Motor/Sensory Deficits - Laboratory Results Result Diagrams: 07/14/18 21:30 07/14/18 22:26 - ECG O2 Sat by Pulse Oximetry: 99 (RA) Pulse Ox Interpretation: Normal Medical Decision Making Medical Decision Making: Time: 2057 Impression: 48 y/o female with HTN Plan: -- EKG -- CMP -- TSH -- ED Urine -- ED Urine Dipstick -- CBC with Differentials -- Heplock Insertion [id number] Labs reviewed for no clinically significant abnormalities. Additionally, patient's BP stabilized over course of stay without any intervention. Stable for discharge with diagnosis of anxiety and elevated blood pressure. Scribe Attestation: Documented by Neel Morales, acting as a scribe for Reed Haas MD. Provider Scribe Attestation: All medical record entries made by the Scribe were at my direction and personally dictated by me. I have reviewed the chart and agree that the record accurately reflects my personal performance of the history, physical exam, medical decision making, and the department course for this patient. I have also personally directed, reviewed, and agree with the discharge instructions and disposition. Disposition - Clinical Impression Clinical Impression: Elevated blood pressure, Anxiety - Patient ED Disposition Is Patient to be Admitted: No Counseled Patient/Family Regarding: Studies Performed, Diagnosis - Disposition Disposition: Routine/Home Disposition Time: 00:13 Condition: STABLE Instructions: High Blood Pressure in Adults, Controlling Your Blood Pressure Through Lifestyle Forms: [facility] (Malay)
[2018-07-14 22:46] LABS: ALBUMIN 4.3 g/dL (3.5-5.0); ALT/SGPT 35 U/L (9-52); AST/SGOT 43 U/L (14-36); BLOOD UREA NITROGEN 14 mg/dl (7-17); CALCIUM 9.5 mg/dL (8.4-10.2); GFR NON-AFRICAN AMERICAN > 60
[2018-07-15 00:38] VITALS: BP 122/78; PULSE 73; RESP 19; TEMP 98.3; O2SAT 97
--- NOTE | 2018-07-15 13:54 | CARD ---
APPROVED REPORT Date of service: 07/14/2018 EKG Measurement Heart [id number] <Conclusion> Normal sinus rhythm Normal ECG
== END 2018-07-15 00:35 | disposition home or self-care (01) ==
LOC: H.ER 19:36
DX: I10 Essential (primary) hypertension (principal); F41.9 Anxiety disorder, unspecified

== ENCOUNTER 2018-12-24 19:41 | Emergency (ER) | payer MEDICAID ==
[2018-12-24 19:42] VITALS: BMI 34.3
[2018-12-24 20:12] VITALS: O2SAT 100
[2018-12-24] MEDS ORDERED: Sodium Chloride 0.9% 1,000 ML IV STA (20:59)
--- NOTE | 2018-12-24 21:17 | ED PDOC ---
Lower Extremity Pain/Injury Time Seen by Provider: 12/24/18 20:15 Chief Complaint (Nursing): Lower Extremity Problem/Injury Chief Complaint (Provider): leg pain and malaise History Per: Patient History/Exam Limitations: no limitations Onset/Duration Of Symptoms: Days Current Symptoms Are (Timing): Still Present Additional Complaint(s): 48 year old female with gastritis presents to the ED for an evaluation of leg pain and malaise. Patient states she has not had her menstrual period since mid- September and is overall feeling overwhelmed. She saw her PMD on December 14 who sent her for bloodwork for which she has not received results yet. Patient states while walking today, she began to have anterior left thigh and lower leg pain with lightheadedness. Over the past couple of months, she has had insomnia, palpitations, nausea and hot flashes. Otherwise, she denies vomiting, trauma to the leg, fever, chills, headache or visual changes. Past Medical History Reviewed: Historical Data, Nursing Documentation, Vital Signs Vital Signs: Last Vital Signs Temp 98.1 F 12/24/18 20:11 Pulse 97 H 12/24/18 20:11 Resp 16 12/24/18 20:11 BP 156/88 H 12/24/18 20:11 Pulse Ox 100 12/24/18 20:11 Primary Care Provider: DoctorArely - Medical History PMH: Anemia, Anxiety, Gastritis, GERD, HTN (borderline), Migraine Denies: Chronic Kidney Disease - Surgical History Surgical History: Appendectomy - Family History Family History: States: Unknown Family Hx, Diabetes, Hypertension Denies: CAD - Immunization History Hx Tetanus Toxoid Vaccination: No Hx Influenza Vaccination: No Hx Pneumococcal Vaccination: No - Home Medications Home Medications: Ambulatory Orders Medication Instructions Recorded Pantoprazole Sodium [Protonix] 40 mg PO DAILY 30 Days ect 12/30/16 Naproxen [Naprosyn] 500 mg PO BID PRN #14 tablet 06/09/17 Cyclobenzaprine [Cyclobenzaprine 10 mg PO TID PRN #15 tab 06/28/17 HCl] Esomeprazole Magnesium [Nexium] 40 mg PO DAILY #28 ecc 11/22/17 Naproxen [Naprosyn] 500 mg PO BID #30 tablet 11/25/17 Cyclobenzaprine [Cyclobenzaprine 10 mg PO BID #15 tab 04/22/18 HCl] Lidocaine 1 each TP DAILY #10 adh..patch 04/22/18 Naproxen [Naprosyn] 500 mg PO BID #30 tablet 04/22/18 - Allergies Allergies/Adverse Reactions: Allergies Allergy/AdvReac Type Severity Reaction Status Date / Time No Known Allergies Allergy Verified 12/24/18 20:09 Review of Systems ROS Statement: Except As Marked, All Systems Reviewed And Found Negative Constitutional: Positive for: Malaise. Negative for: Fever, Chills, Other (trauma ) Eyes: Negative for: Vision Change Cardiovascular: Positive for: Palpitations, Light Headedness Gastrointestinal: Positive for: Nausea Musculoskeletal: Positive for: Leg Pain Neurological: Negative for: Headache Physical Exam - Reviewed Nursing Documentation Reviewed: Yes Vital Signs Reviewed: Yes - Physical Exam Appears: Positive for: No Acute Distress Cardiovascular/Chest: Positive for: Regular Rate, Rhythm Respiratory: Positive for: Normal Breath Sounds. Negative for: Respiratory Distress Pulses-Dorsalis Pedis (R): 2+ Pulses-Femoral (L): 2+ Gastrointestinal/Abdominal: Positive for: Normal Exam, Soft Extremity: Positive for: Normal ROM (left leg no echymosis, erythema or swelling ), Other (no tenderness to palpation of thigh or lower leg ). Negative for: Deformity Lymphatic: Positive for: Normal Exam Neurological/Psych: Positive for: Awake, Alert, Oriented - Laboratory Results Result Diagrams: 12/24/18 21:21 12/24/18 21:21 - ECG O2 Sat by Pulse Oximetry: 100 (RA) Pulse Ox Interpretation: Normal Medical Decision Making Medical Decision Making: Time: 20:58 Plan: NS 1L IV CBC CMP TSH T3&T4 Urine preg EKG EKG @ 21:24: sinus, HR 101, no ischemic change or acute abnormality. Labs significant for HgB 10.6, TSH 0.944, Glucose 155. CPK wnl. Lab results explained to patient who states that she is feeling better in terms of pain and general ill feeling. Patient to follow up in clinic for further evaluation of general symptoms. Scribe Attestation: Documented by Ophelia Ventura, acting as a scribe for Sheila Ellsworth PA-C. Provider Scribe Attestation: All medical record entries made by the Scribe were at my direction and personally dictated by me. I have reviewed the chart and agree that the record accurately reflects my personal performance of the history, physical exam, [facility] decision making, and the department course for this patient. I have also personally directed, reviewed, and agree with the discharge instructions and disposition. Disposition - Clinical Impression Clinical Impression: Leg pain, Malaise, Hot flashes - Patient ED Disposition Is Patient to be Admitted: No Counseled Patient/Family Regarding: Studies Performed, Diagnosis - Disposition Referrals: [facility] [Outside] Disposition: Routine/Home Disposition Time: 23:40 Condition: STABLE Additional Instructions: Follow up with your primary care physician within the next week. You will receive a phone call on Wednesday 12/27 to tell you your appointment. Return to ER if your symptoms worsen. Instructions: Fatigue (DC) Forms: [employer] (Sinhala) Print Language: SERBIAN
[2018-12-24 21:32] LABS: BASO % 0.8 % (0.0-2.0); EOS # 0.1 K/uL (0.0-0.7); EOS % 1.5 % (0.0-4.0); HEMOGLOBIN 10.3 g/dL (12.0-16.0); LYMPH # 0.9 K/uL (1.0-4.3); LYMPH % 14.6 % (20.0-40.0); MEAN CORPUSCULAR HEMOGLOBIN 23.4 pg (27.0-31.0); MEAN CORPUSCULAR HGB CONC 31.7 g/dL (33.0-37.0); MONO # 0.4 K/uL (0.0-0.8); MONO % 6.3 % (0.0-10.0); NEUT # 4.8 K/uL (1.8-7.0); NEUT % 76.8 % (50.0-75.0); RBC 4.39 Mil/uL (3.80-5.20); RED CELL DISTRIBUTION WIDTH 16.1 % (11.5-14.5); WHITE BLOOD COUNT 6.2 K/uL (4.8-10.8)
[2018-12-24 21:36] LABS: BLOOD UREA NITROGEN 11 mg/dl (7-17); CALCIUM 8.8 mg/dL (8.4-10.2); GFR NON-AFRICAN AMERICAN > 60
[2018-12-24 21:49] LABS: ALB/GLOB RATIO 1.3 (1.0-2.1); ALBUMIN 4.7 g/dL (3.5-5.0); ALT/SGPT 25 U/L (9-52); AST/SGOT 45 U/L (14-36)
[2018-12-24 22:06] LABS: T3 0.944 nmol/L (1.49-2.60)
[2018-12-25 00:15] VITALS: BP 139/65; PULSE 81; RESP 18; TEMP 98.4
--- NOTE | 2018-12-25 12:57 | CARD ---
APPROVED REPORT Date of service: 12/24/2018 EKG Measurement Heart [id number] [place] 160P59 [id number] <Conclusion> Sinus tachycardia Otherwise normal ECG
== END 2018-12-24 23:58 | disposition home or self-care (01) ==
LOC: H.ER 19:41
DX: M79.605 Pain in left leg (principal); R53.81 Other malaise; N95.1 Menopausal and female climacteric states; I10 Essential (primary) hypertension
CPT/HCPCS: 80053; 81025; 82550; 84436; 84443; 84480; 85025; 93005; 96360; 99284; J7030